=== PATIENT | male | born 1965 ===

== ENCOUNTER 2021-10-18 16:05 | Inpatient (IN) | payer MEDICAID ==
--- NOTE | 2021-10-19 14:01 | Consultation ---
Medications and Allergies Allergies Allergy/AdvReac Type Severity Reaction Status Date / Time ciprofloxacin [From Cipro] Allergy Rash Unverified 10/19/21 13:56 Home Medications Medication Instructions Recorded Confirmed Last Taken Type Albuterol Mdi (or & Nicu Only) 1 puff IH ONCE 10/18/21 10/18/21 Unknown History [ProAir HFA Inhaler] Gabapentin [Neurontin] 300 mg PO BID 10/18/21 10/18/21 Unknown History HYDROcodone/APAP 5-325 [[place] 1 each PO BID PRN 10/18/21 10/18/21 Unknown History 5/325] Omeprazole 40 mg PO QAM 10/18/21 10/18/21 Unknown History Quetiapine Fumarate [SEROquel] 400 mg PO BID 10/18/21 10/18/21 Unknown History amLODIPine [Norvasc] 5 mg PO DAILY 10/18/21 10/18/21 Unknown History buPROPion HCL [Bupropion Xl] 150 mg PO Q24HR 10/18/21 10/18/21 Unknown History busPIRone [Buspar] 10 mg PO TID 10/18/21 10/18/21 Unknown History lisinopriL [Lisinopril] 20 mg PO DAILY 10/18/21 10/18/21 Unknown History Active Meds: Active Medications Bupropion HCl (Bupropion Xl 150 Mg Tab) 150 mg PO Q24H [facility] Buspirone HCl (Buspirone 10 Mg Tab) 10 mg PO TID [facility] Gabapentin (Gabapentin 300 Mg Cap) 300 mg PO BID [facility] Quetiapine Fumarate (Quetiapine 200 Mg Tab) 400 mg PO BID [facility]
[2021-10-19] MEDS ORDERED: ALBUTEROL 2.5 MG/3 ML NEBU IH ONE (14:08)
[2021-10-19] MEDS ORDERED: ALBUTEROL 8.5 GM MDI INHALATION IH SCH (14:15)
--- NOTE | 2021-10-19 14:18 | History and Physical Report ---
GP History & Physical - History of Present Illness Date of admission: 10/19/21 Reason for Admission: Danger to self, Severe anxiety/depression Chief Complaint: SI History of Present Illness: Patient Name: Irais Kaye Date of : 1965 Attending Provider: YUNG KOHLI Date: 10/19/21 GP History & Physical - History of Present Illness Date of admission: 10/19/21 Date of Examination: 10/19/21 Reason for Admission: Danger to self, Severe anxiety/depression History of Present Illness: The patient was seen today. Patient states that "Girlfriend " and has been having difficulties. Patient states that he has been having SI thoughts for a couple of weeks now with a plan to cut his arms with a "knife" or hang himself with a "rope". Patient observed to be teary at this time. Patient admits to take illicit drug use. PAST PSYCHIATRIC HISTORY: Diagnoses:Schizophrenia Suicide attempts or Self-harm behavior: Denies Prior psychiatric hospitalizations: Yes Substance Abuse history:Yes Previous psychiatric medications tried: Abilify, Buspar,Seroquel, Gabapentin Outpatient treatment:Yes PAST MEDICAL HISTORY:HTN Family Psychiatric History: None reported or documented SOCIAL HISTORY Marital Status: Single Living Arrangements: Lives alone Employment Status: Retired Access to guns/weapons: Denies Education: History of Abuse:Denies Legal History: Denies REVIEW OF SYSTEMS Constitutional: Negative for weight loss ENT: Negative for stridor Respiratory: Negative for cough or hemoptysis All other systems reviewed and are negative MENTAL STATUS EXAMINATION General Appearance and Behavior: Age appropriate, wearing appropriate clothes, cooperative, polite with questioning, good eye contact Cooperation: cooperative Psychomotor Behavior: Psychomotor normal Mood: anxious,Teary Affect and affective range: congruent with stated affect Thought Process: Goal directed Thought Content: SI Speech: Normal volume, Regular rate and rhythm Suicidal Ideation: Yes. Homicidal Ideation: Denies Hallucination: Denies Delusions:None Impulse Control: Limited Insight and Judgment: Limited Memory: Intact Attention:attentive Orientation: Alert and oriented Diagnoses: Schizophrenia Treatment Plan Patient admitted for inpatient psychiatric evaluation, medication adjustment and close monitoring The patient's behavior, mood, sleep and appetite will be closely monitored. Patient enrolled in individual and group therapeutic sessions and encouraged to attend. Patient provided with a safe and structured environment. Patient's physical health needs will be addressed by the Hospitalist. Hospitalist Consulted Labs including CBC, CMP, Lipid profile and Hemoglobin A1C levels ordered for baseline reference Social Assessment will be completed and the Draw Operator will work with patient and family to ensure a suitable and safe disposition Medication adjustment will be made as clinically indicated Continue home meds Usual Wellness Anabaptism/Preservation: - Start Trazodone 50 mg po QHS & 50 mg po QHS PRN between 10 PM & 2 AM for insomnia - Start Melatonin 5 mg po QHS to promote circadian rhythm The patient agreed on the treatment plan, understood the risk, benefit, alternative treatment, potential consequence of no treatment, and gave informed consent. Estimated days: 7 Post hospital care: primary care provider, psychiatric provider Case staffed with Dr. Goldberg Legal Status: Voluntary Patient Problems: Legal Status: Voluntary Medications and Allergies Legal Status: Involuntary Reaction to Hospitalization: Accepting Medications and Allergies Allergies Allergy/AdvReac Type Severity Reaction Status Date / Time ciprofloxacin [From Cipro] Allergy Rash Verified 10/19/21 15:11 Home Medications Medication Instructions Recorded Confirmed Last Taken Type Albuterol Mdi (or & Nicu Only) 1 puff IH ONCE 10/18/21 10/18/21 Unknown History [ProAir HFA Inhaler] Gabapentin [Neurontin] 300 mg PO BID 10/18/21 10/18/21 Unknown History HYDROcodone/APAP 5-325 [[place] 1 each PO BID PRN 10/18/21 10/18/21 Unknown History 5/325] Omeprazole 40 mg PO QAM 10/18/21 10/18/21 Unknown History Quetiapine Fumarate [SEROquel] 400 mg PO BID 10/18/21 10/18/21 Unknown History amLODIPine [Norvasc] 5 mg PO DAILY 10/18/21 10/18/21 Unknown History buPROPion HCL [Bupropion Xl] 150 mg PO Q24HR 10/18/21 10/18/21 Unknown History busPIRone [Buspar] 10 mg PO TID 10/18/21 10/18/21 Unknown History lisinopriL [Lisinopril] 20 mg PO DAILY 10/18/21 10/18/21 Unknown History Active Meds: Active Medications Hydrocodone Bitart/Acetaminophen (Hydrocodone/Acetaminophen 5-325 Mg Tab) 1 each PO BID PRN PRN Reason: Pain , Severe (7-10) Amlodipine Besylate (Amlodipine 5 Mg Tab) 5 mg PO DAILY [facility] Bupropion HCl (Bupropion Xl 150 Mg Tab) 150 mg PO Q24H [facility] Buspirone HCl (Buspirone 10 Mg Tab) 10 mg PO TID [facility] Gabapentin (Gabapentin 300 Mg Cap) 300 mg PO BID [facility] Lisinopril (Lisinopril 20 Mg Tab) 20 mg PO DAILY [facility] Pantoprazole Sodium (Pantoprazole 40 Mg Tab) 40 mg PO DAILY [facility] Quetiapine Fumarate (Quetiapine 200 Mg Tab) 400 mg PO BID [facility] Physician Certification - Certification Statement Physician Certification Statement: This is an acknowledgement statement that MARIE ZHENG is a 56 year old M who requires inpatient psychiatric admission for treatment which could reasonably be expected to improve the patient's condition for Estimated period of time patient will need to remain in the hospital: [ ] Plan for post-hospital care: [ ]
[2021-10-19] MEDS: QUEtiapine 200 MG TAB PO SCH ×2 (15:12→21:08)
[2021-10-19] MEDS: busPIRone 10 MG TAB PO SCH ×2 (15:12→20:15)
[2021-10-19] MEDS: GABAPENTIN 300 MG CAP PO SCH ×2 (15:12→21:08)
[2021-10-19] MEDS: PANTOPRAZOLE 40 MG TAB PO SCH (15:12)
[2021-10-19] MEDS: buPROPion XL 150 MG TAB PO SCH (15:13)
[2021-10-19] MEDS: amLODIPine 5 MG TAB PO SCH (15:13)
[2021-10-19] MEDS: HYDROcodone/ACETAMINOPHEN 5-325 MG TAB PO PRN (15:14)
[2021-10-19] MEDS: LISINOPRIL 20 MG TAB PO SCH (15:18)
[2021-10-19 18:07] LABS: Basophils # (Auto) 0.1 K/mm3 (0.0-0.1); Basophils % (Auto) 1.1 % (0.0-1.8); Eosinophils # (Auto) 0.3 K/mm3 (0.0-0.4); Eosinophils % (Auto) 4.5 % (0.0-4.3); Hematocrit 34.9 % (35.5-45.6); Hemoglobin 11.4 gm/dl (11.8-15.2); Mean Corpuscular HGB Conc 33 % (32-34); Mean Corpuscular Volume 89 fl (84-94); Monocytes # (Auto) 0.5 K/mm3 (0.0-0.8); Monocytes % (Auto) 8.9 % (0.0-7.3); Platelet Count 279 K/mm3 (140-440); Red Blood Count 3.92 M/mm3 (3.65-5.03); Red Cell Distribution Width 16.3 % (13.2-15.2)
[2021-10-19 18:25] LABS: Alanine Aminotransferase 19 units/L (7-56); Albumin 3.6 g/dL (3.9-5); BUN/Creatinine Ratio 17; Blood Urea Nitrogen 12 mg/dL (9-20); Calcium 8.9 mg/dL (8.4-10.2); Hemolysis Index 8
[2021-10-19] MEDS ORDERED: GABAPENTIN 300 MG CAP PO SCH (22:00)
[2021-10-20] MEDS: HYDROcodone/ACETAMINOPHEN 5-325 MG TAB PO PRN ×2 (02:59→12:50)
[2021-10-20] MEDS: busPIRone 10 MG TAB PO SCH ×3 (08:58→20:45)
[2021-10-20] MEDS: PANTOPRAZOLE 40 MG TAB PO SCH (09:00)
[2021-10-20] MEDS: amLODIPine 5 MG TAB PO SCH (09:00)
[2021-10-20] MEDS: GABAPENTIN 300 MG CAP PO SCH ×2 (09:01→21:40)
[2021-10-20] MEDS: QUEtiapine 200 MG TAB PO SCH ×2 (09:01→21:40)
[2021-10-20] MEDS: LISINOPRIL 20 MG TAB PO SCH (09:01)
[2021-10-20] MEDS ORDERED: NON-FORMULARY EACH (Omeprazole [Omeprazole] 40 MG Capsule.Dr) PO SCH (10:00)
--- NOTE | 2021-10-20 12:09 | Progress Note ---
Subjective Date of service: 10/20/21 Subjective Comment: Patient seen today in the day room having breakfast. Patient states that he is feeling much better today. Patient states that "sometimes hurting myself still comes to mind". Patient denies any homicidal thoughts, visual or auditory hallucination at this time. PAST PSYCHIATRIC HISTORY: Diagnoses:Schizophrenia Suicide attempts or Self-harm behavior: Denies Prior psychiatric hospitalizations: Yes Substance Abuse history:Yes Previous psychiatric medications tried: Abilify, Buspar,Seroquel, Gabapentin Outpatient treatment:Yes PAST MEDICAL HISTORY:HTN Family Psychiatric History: None reported or documented SOCIAL HISTORY Marital Status: Single Living Arrangements: Lives alone Employment Status: Retired Access to guns/weapons: Denies Education: History of Abuse:Denies Legal History: Denies REVIEW OF SYSTEMS Constitutional: Negative for weight loss ENT: Negative for stridor Respiratory: Negative for cough or hemoptysis All other systems reviewed and are negative MENTAL STATUS EXAMINATION General Appearance and Behavior: Age appropriate, wearing appropriate clothes, cooperative, polite with questioning, good eye contact Cooperation: cooperative Psychomotor Behavior: Psychomotor normal Mood: anxious,Teary Affect and affective range: congruent with stated affect Thought Process: Goal directed Thought Content: SI Speech: Normal volume, Regular rate and rhythm Suicidal Ideation: Yes. Homicidal Ideation: Denies Hallucination: Denies Delusions:None Impulse Control: Limited Insight and Judgment: Limited Memory: Intact Attention:attentive Orientation: Alert and oriented Diagnoses: Schizophrenia Treatment Plan Patient admitted for inpatient psychiatric evaluation, medication adjustment and close monitoring The patient's behavior, mood, sleep and appetite will be closely monitored. Patient enrolled in individual and group therapeutic sessions and encouraged to attend. Patient provided with a safe and structured environment. Patient's physical health needs will be addressed by the Hospitalist. Hospitalist Consulted Labs including CBC, CMP, Lipid profile and Hemoglobin A1C levels ordered for baseline reference Social Assessment will be completed and the Reversal Print Inspector will work with patient and family to ensure a suitable and safe disposition Medication adjustment will be made as clinically indicated Continue home meds Usual Wellness Hindu/Preservation: - Start Trazodone 50 mg po QHS & 50 mg po QHS PRN between 10 PM & 2 AM for insomnia - Start Melatonin 5 mg po QHS to promote circadian rhythm The patient agreed on the treatment plan, understood the risk, benefit, alternative treatment, potential consequence of no treatment, and gave informed consent. Estimated days: 7 Post hospital care: primary care provider, psychiatric provider Case staffed with Dr. Goldberg Legal Status: Voluntary Patient Problems: Legal Status: Voluntary Medications and Allergies Legal Status: Involuntary Reaction to Hospitalization: Accepting Medications and Allergies Allergies Allergy/AdvReac Type Severity Reaction Status Date / Time ciprofloxacin [From Cipro] Allergy Rash Verified 10/19/21 15:11 Home Medications Medication Instructions Recorded Confirmed Last Taken Type Albuterol Mdi (or & Nicu Only) 1 puff IH ONCE 10/18/21 10/18/21 Unknown History [ProAir HFA Inhaler] Gabapentin [Neurontin] 300 mg PO BID 10/18/21 10/18/21 Unknown History HYDROcodone/APAP 5-325 [[place] 1 each PO BID PRN 10/18/21 10/18/21 Unknown History 5/325] Omeprazole 40 mg PO QAM 10/18/21 10/18/21 Unknown History Quetiapine Fumarate [SEROquel] 400 mg PO BID 10/18/21 10/18/21 Unknown History amLODIPine [Norvasc] 5 mg PO DAILY 10/18/21 10/18/21 Unknown History buPROPion HCL [Bupropion Xl] 150 mg PO Q24HR 10/18/21 10/18/21 Unknown History busPIRone [Buspar] 10 mg PO TID 10/18/21 10/18/21 Unknown History lisinopriL [Lisinopril] 20 mg PO DAILY 10/18/21 10/18/21 Unknown History Active Meds: Active Medications Hydrocodone Bitart/Acetaminophen (Hydrocodone/Acetaminophen 5-325 Mg Tab) 1 each PO BID PRN PRN Reason: Pain , Severe (7-10) Last Admin: 10/20/21 02:59 Dose: 1 each Amlodipine Besylate (Amlodipine 5 Mg Tab) 5 mg PO DAILY [facility] Last Admin: 10/20/21 09:00 Dose: 5 mg Bupropion HCl (Bupropion Xl 150 Mg Tab) 150 mg PO Q24H [facility] Last Admin: 10/19/21 15:13 Dose: 150 mg Buspirone HCl (Buspirone 10 Mg Tab) 10 mg PO TID [facility] Last Admin: 10/20/21 08:58 Dose: 10 mg Gabapentin (Gabapentin 300 Mg Cap) 300 mg PO BID [facility] Last Admin: 10/20/21 09:01 Dose: 300 mg Lisinopril (Lisinopril 20 Mg Tab) 20 mg PO DAILY [facility] Last Admin: 10/20/21 09:01 Dose: 20 mg Pantoprazole Sodium (Pantoprazole 40 Mg Tab) 40 mg PO DAILY [facility] Last Admin: 10/20/21 09:00 Dose: 40 mg Quetiapine Fumarate (Quetiapine 200 Mg Tab) 400 mg PO BID [facility] Last Admin: 10/20/21 09:01 Dose: 400 mg Results - Results Labs/Vitals: Laboratory Last Values WBC 6.0 K/mm3 (4.5-11.0) 10/19/21 17:51 RBC 3.92 M/mm3 (3.65-5.03) 10/19/21 17:51 Hgb 11.4 gm/dl (11.8-15.2) L 10/19/21 17:51 Hct 34.9 % (35.5-45.6) L 10/19/21 17:51 MCV 89 fl (84-94) 10/19/21 17:51 MCH 29 pg (28-32) 10/19/21 17:51 MCHC 33 % (32-34) 10/19/21 17:51 RDW 16.3 % (13.2-15.2) H 10/19/21 17:51 Plt Count 279 K/mm3 (140-440) 10/19/21 17:51 Lymph % (Auto) 17.0 % (13.4-35.0) 10/19/21 17:51 [place] % (Auto) 8.9 % (0.0-7.3) H 10/19/21 17:51 Eos % (Auto) 4.5 % (0.0-4.3) H 10/19/21 17:51 Baso % (Auto) 1.1 % (0.0-1.8) 10/19/21 17:51 Lymph # (Auto) 1.0 K/mm3 (1.2-5.4) L 10/19/21 17:51 [place] # (Auto) 0.5 K/mm3 (0.0-0.8) 10/19/21 17:51 Eos # (Auto) 0.3 K/mm3 (0.0-0.4) 10/19/21 17:51 Baso # (Auto) 0.1 K/mm3 (0.0-0.1) 10/19/21 17:51 Seg Neutrophils % 68.5 % (40.0-70.0) 10/19/21 17:51 Seg Neutrophils # 4.1 K/mm3 (1.8-7.7) 10/19/21 17:51 Sodium 140 mmol/L (137-145) 10/19/21 17:51 Potassium 4.1 mmol/L (3.6-5.0) 10/19/21 17:51 Chloride 106.1 mmol/L (98-107) 10/19/21 17:51 Carbon Dioxide 23 mmol/L (22-30) 10/19/21 17:51 Anion Gap 15 mmol/L 10/19/21 17:51 BUN 12 mg/dL (9-20) 10/19/21 17:51 Creatinine 0.7 mg/dL (0.8-1.3) L 10/19/21 17:51 Estimated GFR > 60 ml/min 10/19/21 17:51 BUN/Creatinine Ratio 17 % 10/19/21 17:51 Glucose 137 mg/dL (75-100) H 10/19/21 17:51 POC Glucose 131 mg/dL (70-105) H 10/19/21 19:56 Calcium 8.9 mg/dL (8.4-10.2) 10/19/21 17:51 Total Bilirubin < 0.20 mg/dL (0.1-1.2) 10/19/21 17:51 AST 27 units/L (5-40) 10/19/21 17:51 ALT 19 units/L (7-56) 10/19/21 17:51 Alkaline Phosphatase 83 units/L (35-129) 10/19/21 17:51 Total Protein 6.4 g/dL (6.3-8.2) 10/19/21 17:51 Albumin 3.6 g/dL (3.9-5) L 10/19/21 17:51 Albumin/Globulin Ratio 1.3 % 10/19/21 17:51 TSH 1.210 mlU/mL (0.270-4.200) 10/19/21 17:51 Last Vital Signs Temp 97.9 F 10/20/21 08:12 Pulse 82 10/20/21 09:00 Resp 20 07/23/22 08:12 BP 131/74 10/20/21 09:00 Pulse Ox 97 10/20/21 08:12
[2021-10-20] MEDS: buPROPion XL 150 MG TAB PO SCH (14:46)
[2021-10-20] MEDS: ACETAMINOPHEN 325 MG TAB PO PRN (18:15)
[2021-10-21] MEDS: ACETAMINOPHEN 325 MG TAB PO PRN ×2 (04:35→17:20)
[2021-10-21] MEDS: busPIRone 10 MG TAB PO SCH ×3 (08:17→21:25)
[2021-10-21] MEDS: HYDROcodone/ACETAMINOPHEN 5-325 MG TAB PO PRN ×2 (08:17→21:24)
[2021-10-21] MEDS: amLODIPine 5 MG TAB PO SCH (09:47)
[2021-10-21] MEDS: PANTOPRAZOLE 40 MG TAB PO SCH (09:47)
[2021-10-21] MEDS: GABAPENTIN 300 MG CAP PO SCH ×2 (09:47→21:26)
[2021-10-21] MEDS: QUEtiapine 200 MG TAB PO SCH ×2 (09:48→21:25)
[2021-10-21] MEDS: LISINOPRIL 20 MG TAB PO SCH (09:48)
--- NOTE | 2021-10-21 12:13 | Progress Note ---
Subjective Date of service: 10/21/21 Subjective Comment: Date of service: 10/21/21 Principal diagnosis: Schizophrenia Patient seen today in the day room. Patient states that he is doing well. Per nursing staff patient complained of pain. Patient states that he has hemo rrhoids. Patient eating and eating well, and denies any SI/HI/AVH at this time. Patient seen today in the day room having breakfast. Patient states that he is feeling much better today. Patient states that "sometimes hurting myself still comes to mind". Patient denies any homicidal thoughts, visual or auditory hallucination at this time. PAST PSYCHIATRIC HISTORY: Diagnoses:Schizophrenia Suicide attempts or Self-harm behavior: Denies Prior psychiatric hospitalizations: Yes Substance Abuse history:Yes Previous psychiatric medications tried: Abilify, Buspar,Seroquel, Gabapentin Outpatient treatment:Yes PAST MEDICAL HISTORY:HTN Family Psychiatric History: None reported or documented SOCIAL HISTORY Marital Status: Single Living Arrangements: Lives alone Employment Status: Retired Access to guns/weapons: Denies Education: History of Abuse:Denies Legal History: Denies REVIEW OF SYSTEMS Constitutional: Negative for weight loss ENT: Negative for stridor Respiratory: Negative for cough or hemoptysis All other systems reviewed and are negative MENTAL STATUS EXAMINATION General Appearance and Behavior: Age appropriate, wearing appropriate clothes, cooperative, polite with questioning, good eye contact Cooperation: cooperative Psychomotor Behavior: Psychomotor normal Mood: anxious,Teary Affect and affective range: congruent with stated affect Thought Process: Goal directed Thought Content: SI Speech: Normal volume, Regular rate and rhythm Suicidal Ideation: Yes. Homicidal Ideation: Denies Hallucination: Denies Delusions:None Impulse Control: Limited Insight and Judgment: Limited Memory: Intact Attention:attentive Orientation: Alert and oriented Diagnoses: Schizophrenia Treatment Plan Patient admitted for inpatient psychiatric evaluation, medication adjustment and close monitoring The patient's behavior, mood, sleep and appetite will be closely monitored. Patient enrolled in individual and group therapeutic sessions and encouraged to attend. Patient provided with a safe and structured environment. Patient's physical health needs will be addressed by the Hospitalist. Hospitalist Consulted Labs including CBC, CMP, Lipid profile and Hemoglobin A1C levels ordered for baseline reference Social Assessment will be completed and the Meter Inspector will work with patient and family to ensure a suitable and safe disposition Medication adjustment will be made as clinically indicated Continue home meds Usual Wellness Temple/Preservation: - Start Trazodone 50 mg po QHS & 50 mg po QHS PRN between 10 PM & 2 AM for ins omnia - Start Melatonin 5 mg po QHS to promote circadian rhythm The patient agreed on the treatment plan, understood the risk, benefit, alternative treatment, potential consequence of no treatment, and gave informed consent. Estimated days: 7 Post hospital care: primary care provider, psychiatric provider Case staffed with Dr. Goldberg Legal Status: Voluntary Patient Problems: Legal Status: Voluntary Medications and Allergies Legal Status: Involuntary Reaction to Hospitalization: Accepting Medications and Allergies Allergies Allergy/AdvReac Type Severity Reaction Status Date / Time ciprofloxacin [From Cipro] Allergy Rash Verified 10/19/21 15:11 Home Medications Medication Instructions Recorded Confirmed Last Taken Type Albuterol Mdi (or & Nicu Only) 1 puff IH ONCE 10/18/21 10/18/21 Unknown History [ProAir HFA Inhaler] Gabapentin [Neurontin] 300 mg PO BID 10/18/21 10/18/21 Unknown History HYDROcodone/APAP 5-325 [[place] 1 each PO BID PRN 10/18/21 10/18/21 Unknown History 5/325] Omeprazole 40 mg PO QAM 10/18/21 10/18/21 Unknown History Quetiapine Fumarate [SEROquel] 400 mg PO BID 10/18/21 10/18/21 Unknown History amLODIPine [Norvasc] 5 mg PO DAILY 10/18/21 10/18/21 Unknown History buPROPion HCL [Bupropion Xl] 150 mg PO Q24HR 10/18/21 10/18/21 Unknown History busPIRone [Buspar] 10 mg PO TID 10/18/21 10/18/21 Unknown History lisinopriL [Lisinopril] 20 mg PO DAILY 10/18/21 10/18/21 Unknown History Active Meds: Active Medications Acetaminophen (Acetaminophen 325 Mg Tab) 650 mg PO Q6H PRN PRN Reason: Pain, Mild (1-3) Last Admin: 10/21/21 04:35 Dose: 650 mg Hydrocodone Bitart/Acetaminophen (Hydrocodone/Acetaminophen 5-325 Mg Tab) 1 each PO BID PRN PRN Reason: Pain , Severe (7-10) Last Admin: 10/21/21 08:17 Dose: 1 each Amlodipine Besylate (Amlodipine 5 Mg Tab) 5 mg PO DAILY [facility] Last Admin: 10/21/21 09:47 Dose: 5 mg Bupropion HCl (Bupropion Xl 150 Mg Tab) 150 mg PO Q24H [facility] Last Admin: 10/20/21 14:46 Dose: 150 mg Buspirone HCl (Buspirone 10 Mg Tab) 10 mg PO TID [facility] Last Admin: 10/21/21 08:17 Dose: 10 mg Gabapentin (Gabapentin 300 Mg Cap) 300 mg PO BID [facility] Last Admin: 10/21/21 09:47 Dose: 300 mg Lisinopril (Lisinopril 20 Mg Tab) 20 mg PO DAILY [facility] Last Admin: 10/21/21 09:48 Dose: 20 mg Pantoprazole Sodium (Pantoprazole 40 Mg Tab) 40 mg PO DAILY [facility] Last Admin: 10/21/21 09:47 Dose: 40 mg Quetiapine Fumarate (Quetiapine 200 Mg Tab) 400 mg PO BID [facility] Last Admin: 10/21/21 09:48 Dose: 400 mg Results - Results Labs/Vitals: Laboratory Last Values WBC 6.0 K/mm3 (4.5-11.0) 10/19/21 17:51 RBC 3.92 M/mm3 (3.65-5.03) 10/19/21 17:51 Hgb 11.4 gm/dl (11.8-15.2) L 10/19/21 17:51 Hct 34.9 % (35.5-45.6) L 10/19/21 17:51 MCV 89 fl (84-94) 10/19/21 17:51 MCH 29 pg (28-32) 10/19/21 17:51 MCHC 33 % (32-34) 10/19/21 17:51 RDW 16.3 % (13.2-15.2) H 10/19/21 17:51 Plt Count 279 K/mm3 (140-440) 10/19/21 17:51 Lymph % (Auto) 17.0 % (13.4-35.0) 10/19/21 17:51 [place] % (Auto) 8.9 % (0.0-7.3) H 10/19/21 17:51 Eos % (Auto) 4.5 % (0.0-4.3) H 10/19/21 17:51 Baso % (Auto) 1.1 % (0.0-1.8) 10/19/21 17:51 Lymph # (Auto) 1.0 K/mm3 (1.2-5.4) L 10/19/21 17:51 [place] # (Auto) 0.5 K/mm3 (0.0-0.8) 10/19/21 17:51 Eos # (Auto) 0.3 K/mm3 (0.0-0.4) 10/19/21 17:51 Baso # (Auto) 0.1 K/mm3 (0.0-0.1) 10/19/21 17:51 Seg Neutrophils % 68.5 % (40.0-70.0) 10/19/21 17:51 Seg Neutrophils # 4.1 K/mm3 (1.8-7.7) 10/19/21 17:51 Sodium 140 mmol/L (137-145) 10/19/21 17:51 Potassium 4.1 mmol/L (3.6-5.0) 10/19/21 17:51 Chloride 106.1 mmol/L (98-107) 10/19/21 17:51 Carbon Dioxide 23 mmol/L (22-30) 10/19/21 17:51 Anion Gap 15 mmol/L 10/19/21 17:51 BUN 12 mg/dL (9-20) 10/19/21 17:51 Creatinine 0.7 mg/dL (0.8-1.3) L 10/19/21 17:51 Estimated GFR > 60 ml/min 10/19/21 17:51 BUN/Creatinine Ratio 17 % 10/19/21 17:51 Glucose 137 mg/dL (75-100) H 10/19/21 17:51 POC Glucose 131 mg/dL (70-105) H 10/19/21 19:56 Calcium 8.9 mg/dL (8.4-10.2) 10/19/21 17:51 Total Bilirubin < 0.20 mg/dL (0.1-1.2) 10/19/21 17:51 AST 27 units/L (5-40) 10/19/21 17:51 ALT 19 units/L (7-56) 10/19/21 17:51 Alkaline Phosphatase 83 units/L (35-129) 10/19/21 17:51 Total Protein 6.4 g/dL (6.3-8.2) 10/19/21 17:51 Albumin 3.6 g/dL (3.9-5) L 10/19/21 17:51 Albumin/Globulin Ratio 1.3 % 10/19/21 17:51 TSH 1.210 mlU/mL (0.270-4.200) 10/19/21 17:51 Last Vital Signs Temp 97.9 F 10/20/21 08:12 Pulse 80 10/21/21 09:48 Resp 18 10/21/21 10:16 BP 109/81 10/21/21 09:48 Pulse Ox 98 10/21/21 10:16
[2021-10-21] MEDS: buPROPion XL 150 MG TAB PO SCH (13:03)
[2021-10-22] MEDS: ACETAMINOPHEN 325 MG TAB PO PRN ×2 (02:20→13:44)
[2021-10-22] MEDS: GABAPENTIN 300 MG CAP PO SCH ×2 (09:32→21:02)
[2021-10-22] MEDS: HYDROcodone/ACETAMINOPHEN 5-325 MG TAB PO PRN ×2 (09:32→21:03)
[2021-10-22] MEDS: busPIRone 10 MG TAB PO SCH ×3 (09:32→21:02)
[2021-10-22] MEDS: PANTOPRAZOLE 40 MG TAB PO SCH (09:32)
[2021-10-22] MEDS: QUEtiapine 200 MG TAB PO SCH ×2 (09:32→21:02)
[2021-10-22] MEDS: LISINOPRIL 20 MG TAB PO SCH (09:59)
[2021-10-22] MEDS: amLODIPine 5 MG TAB PO SCH (10:00)
--- NOTE | 2021-10-22 13:46 | Progress Note ---
Subjective Date of service: 10/22/21 Subjective Comment: Date of service: 10/22/21: Patient seen today in his room. Patient states that he is doing good. States that though he hears voices at times he is currently not hearing them. Per nursing staff patient was verbally aggressive yesterday to the extent that he was having difficulty breathing properly and kept pacing. Patient denies any SI/HI/AVH at this time. Date of service: 10/21/21 Principal diagnosis: Schizophrenia Patient seen today in the day room. Patient states that he is doing well. Per nursing staff patient complained of pain. Patient states that he has hemorrhoids. Patient eating and eating well, and denies any SI/HI/AVH at this time. Date of service: 10/20/21: Patient seen today in the day room having breakfast. Patient states that he is feeling much better today. Patient states that "sometimes hurting myself still comes to mind". Patient denies any homicidal thoughts, visual or auditory hallucination at this time. PAST PSYCHIATRIC HISTORY: Diagnoses:Schizophrenia Suicide attempts or Self-harm behavior: Denies Prior psychiatric hospitalizations: Yes Substance Abuse history:Yes Previous psychiatric medications tried: Abilify, Buspar,Seroquel, Gabapentin Outpatient treatment:Yes PAST MEDICAL HISTORY:HTN Family Psychiatric History: None reported or documented SOCIAL HISTORY Marital Status: Single Living Arrangements: Lives alone Employment Status: Retired Access to guns/weapons: Denies Education: History of Abuse:Denies Legal History: Denies REVIEW OF SYSTEMS Constitutional: Negative for weight loss ENT: Negative for stridor Respiratory: Negative for cough or hemoptysis All other systems reviewed and are negative MENTAL STATUS EXAMINATION General Appearance and Behavior: Age appropriate, wearing appropriate clothes, cooperative, polite with questioning, good eye contact Cooperation: cooperative Psychomotor Behavior: Psychomotor normal Mood: anxious,Teary Affect and affective range: congruent with stated affect Thought Process: Goal directed Thought Content: SI Speech: Normal volume, Regular rate and rhythm Suicidal Ideation: Yes. Homicidal Ideation: Denies Hallucination: Denies Delusions:None Impulse Control: Limited Insight and Judgment: Limited Memory: Intact Attention:attentive Orientation: Alert and oriented Diagnoses: Schizophrenia Treatment Plan Patient admitted for inpatient psychiatric evaluation, medication adjustment and close monitoring The patient's behavior, mood, sleep and appetite will be closely monitored. Patient enrolled in individual and group therapeutic sessions and encouraged to attend. Patient provided with a safe and structured environment. Patient's physical health needs will be addressed by the Hospitalist. Hospitalist Consulted Labs including CBC, CMP, Lipid profile and Hemoglobin A1C levels ordered for baseline reference Social Assessment will be completed and the Election Judge will work with patient and family to ensure a suitable and safe disposition Medication adjustment will be made as clinically indicated Continue home meds Usual Wellness Scientologist/Preservation: - Start Trazodone 50 mg po QHS & 50 mg po QHS PRN between 10 PM & 2 AM for insomnia - Start Melatonin 5 mg po QHS to promote circadian rhythm The patient agreed on the treatment plan, understood the risk, benefit, alternative treatment, potential consequence of no treatment, and gave informed consent. Estimated days: 7 Post hospital care: primary care provider, psychiatric provider Case staffed with Dr. Goldberg Legal Status: Voluntary Patient Problems: Legal Status: Voluntary Medications and Allergies Legal Status: Involuntary Reaction to Hospitalization: Accepting Medications and Allergies Allergies Allergy/AdvReac Type Severity Reaction Status Date / Time ciprofloxacin [From Cipro] Allergy Rash Verified 10/19/21 15:11 Home Medications Medication Instructions Recorded Confirmed Last Taken Type Albuterol Mdi (or & Nicu Only) 1 puff IH ONCE 10/18/21 10/18/21 Unknown History [ProAir HFA Inhaler] Gabapentin [Neurontin] 300 mg PO BID 10/18/21 10/18/21 Unknown History HYDROcodone/APAP 5-325 [[place] 1 each PO BID PRN 10/18/21 10/18/21 Unknown History 5/325] Omeprazole 40 mg PO QAM 10/18/21 10/18/21 Unknown History Quetiapine Fumarate [SEROquel] 400 mg PO BID 10/18/21 10/18/21 Unknown History amLODIPine [Norvasc] 5 mg PO DAILY 10/18/21 10/18/21 Unknown History buPROPion HCL [Bupropion Xl] 150 mg PO Q24HR 10/18/21 10/18/21 Unknown History busPIRone [Buspar] 10 mg PO TID 10/18/21 10/18/21 Unknown History lisinopriL [Lisinopril] 20 mg PO DAILY 10/18/21 10/18/21 Unknown History Active Meds: Active Medications Acetaminophen (Acetaminophen 325 Mg Tab) 650 mg PO Q6H PRN PRN Reason: Pain, Mild (1-3) Last Admin: 10/22/21 02:20 Dose: 650 mg Hydrocodone Bitart/Acetaminophen (Hydrocodone/Acetaminophen 5-325 Mg Tab) 1 each PO BID PRN PRN Reason: Pain , Severe (7-10) Last Admin: 10/22/21 09:32 Dose: 1 each Amlodipine Besylate (Amlodipine 5 Mg Tab) 5 mg PO DAILY [facility] Last Admin: 10/22/21 10:00 Dose: Not Given Bupropion HCl (Bupropion Xl 150 Mg Tab) 150 mg PO Q24H [facility] Last Admin: 10/21/21 13:03 Dose: 150 mg Buspirone HCl (Buspirone 10 Mg Tab) 10 mg PO TID [facility] Last Admin: 10/22/21 09:32 Dose: 10 mg Gabapentin (Gabapentin 300 Mg Cap) 300 mg PO BID [facility] Last Admin: 10/22/21 09:32 Dose: 300 mg Lisinopril (Lisinopril 20 Mg Tab) 20 mg PO DAILY [facility] Last Admin: 10/22/21 09:59 Dose: Not Given Pantoprazole Sodium (Pantoprazole 40 Mg Tab) 40 mg PO DAILY [facility] Last Admin: 10/22/21 09:32 Dose: 40 mg Quetiapine Fumarate (Quetiapine 200 Mg Tab) 400 mg PO BID [facility] Last Admin: 10/22/21 09:32 Dose: 400 mg Results - Results Labs/Vitals: Laboratory Last Values WBC 6.0 K/mm3 (4.5-11.0) 10/19/21 17:51 RBC 3.92 M/mm3 (3.65-5.03) 10/19/21 17:51 Hgb 11.4 gm/dl (11.8-15.2) L 10/19/21 17:51 Hct 34.9 % (35.5-45.6) L 10/19/21 17:51 MCV 89 fl (84-94) 10/19/21 17:51 MCH 29 pg (28-32) 10/19/21 17:51 MCHC 33 % (32-34) 10/19/21 17:51 RDW 16.3 % (13.2-15.2) H 10/19/21 17:51 Plt Count 279 K/mm3 (140-440) 10/19/21 17:51 Lymph % (Auto) 17.0 % (13.4-35.0) 10/19/21 17:51 [place] % (Auto) 8.9 % (0.0-7.3) H 10/19/21 17:51 Eos % (Auto) 4.5 % (0.0-4.3) H 10/19/21 17:51 Baso % (Auto) 1.1 % (0.0-1.8) 10/19/21 17:51 Lymph # (Auto) 1.0 K/mm3 (1.2-5.4) L 10/19/21 17:51 [place] # (Auto) 0.5 K/mm3 (0.0-0.8) 10/19/21 17:51 Eos # (Auto) 0.3 K/mm3 (0.0-0.4) 10/19/21 17:51 Baso # (Auto) 0.1 K/mm3 (0.0-0.1) 10/19/21 17:51 Seg Neutrophils % 68.5 % (40.0-70.0) 10/19/21 17:51 Seg Neutrophils # 4.1 K/mm3 (1.8-7.7) 10/19/21 17:51 Sodium 140 mmol/L (137-145) 10/19/21 17:51 Potassium 4.1 mmol/L (3.6-5.0) 10/19/21 17:51 Chloride 106.1 mmol/L (98-107) 10/19/21 17:51 Carbon Dioxide 23 mmol/L (22-30) 10/19/21 17:51 Anion Gap 15 mmol/L 10/19/21 17:51 BUN 12 mg/dL (9-20) 10/19/21 17:51 Creatinine 0.7 mg/dL (0.8-1.3) L 10/19/21 17:51 Estimated GFR > 60 ml/min 10/19/21 17:51 BUN/Creatinine Ratio 17 % 10/19/21 17:51 Glucose 137 mg/dL (75-100) H 10/19/21 17:51 POC Glucose 131 mg/dL (70-105) H 10/19/21 19:56 Calcium 8.9 mg/dL (8.4-10.2) 10/19/21 17:51 Total Bilirubin < 0.20 mg/dL (0.1-1.2) 10/19/21 17:51 AST 27 units/L (5-40) 10/19/21 17:51 ALT 19 units/L (7-56) 10/19/21 17:51 Alkaline Phosphatase 83 units/L (35-129) 10/19/21 17:51 Total Protein 6.4 g/dL (6.3-8.2) 10/19/21 17:51 Albumin 3.6 g/dL (3.9-5) L 10/19/21 17:51 Albumin/Globulin Ratio 1.3 % 10/19/21 17:51 TSH 1.210 mlU/mL (0.270-4.200) 10/19/21 17:51 Last Vital Signs Temp 98.3 F 10/22/21 08:36 Pulse 76 10/22/21 10:00 Resp 20 10/22/21 08:36 BP 98/58 10/22/21 10:00 Pulse Ox 98 10/22/21 08:36
[2021-10-22] MEDS: buPROPion XL 150 MG TAB PO SCH (14:00)
[2021-10-23] MEDS: QUEtiapine 200 MG TAB PO SCH ×2 (09:07→21:28)
[2021-10-23] MEDS: GABAPENTIN 300 MG CAP PO SCH ×2 (09:07→21:28)
[2021-10-23] MEDS: PANTOPRAZOLE 40 MG TAB PO SCH (09:07)
[2021-10-23] MEDS: busPIRone 10 MG TAB PO SCH ×3 (09:07→21:28)
[2021-10-23] MEDS: amLODIPine 5 MG TAB PO SCH (09:14)
[2021-10-23] MEDS: LISINOPRIL 20 MG TAB PO SCH (09:14)
[2021-10-23] MEDS: HYDROcodone/ACETAMINOPHEN 5-325 MG TAB PO PRN (09:15)
[2021-10-23] MEDS: buPROPion XL 150 MG TAB PO SCH (13:56)
[2021-10-23] MEDS: ACETAMINOPHEN 325 MG TAB PO PRN ×2 (13:57→21:28)
--- NOTE | 2021-10-23 14:45 | Progress Note ---
Subjective Date of service: 10/23/21 Subjective Comment: Date of service: 10/23/21: Patient seen today. Observed patient had some tremors, when asked patient states "I am in pain". Patient did confirm that he was just given pain medication. Patient denies any SI/HI/AVH at this time and states he is anxious to go back home. Will continue to monitor. Date of service: 10/22/21: Patient seen today in his room. Patient states that he is doing good. States that though he hears voices at times he is currently not hearing them. Per nursing staff patient was verbally aggressive yesterday to the extent that he was having difficulty breathing properly and kept pacing. Chilo coles denies any SI/HI/AVH at this time. Date of service: 10/21/21 Principal diagnosis: Schizophrenia Patient seen today in the day room. Patient states that he is doing well. Per nursing staff patient complained of pain. Patient states that he has hemorrhoids. Patient eating and eating well, and denies any SI/HI/AVH at this time. Date of service: 10/20/21: Patient seen today in the day room having breakfast. Patient states that he is feeling much better today. Patient states that "sometimes hurting myself still comes to mind". Patient denies any homicidal thoughts, visual or auditory hallucination at this time. PAST PSYCHIATRIC HISTORY: Diagnoses:Schizophrenia Suicide attempts or Self-harm behavior: Denies Prior psychiatric hospitalizations: Yes Substance Abuse history:Yes Previous psychiatric medications tried: Abilify, Buspar,Seroquel, Gabapentin Outpatient treatment:Yes PAST MEDICAL HISTORY:HTN Family Psychiatric History: None reported or documented SOCIAL HISTORY Marital Status: Single Living Arrangements: Lives alone Employment Status: Retired Access to guns/weapons: Denies Education: History of Abuse:Denies Legal History: Denies REVIEW OF SYSTEMS Constitutional: Negative for weight loss ENT: Negative for stridor Respiratory: Negative for cough or hemoptysis All other systems reviewed and are negative MENTAL STATUS EXAMINATION General Appearance and Behavior: Age appropriate, wearing appropriate clothes, cooperative, polite with questioning, good eye contact Cooperation: cooperative Psychomotor Behavior: Psychomotor normal Mood: anxious,Teary Affect and affective range: congruent with stated affect Thought Process: Goal directed Thought Content: SI Speech: Normal volume, Regular rate and rhythm Suicidal Ideation: Yes. Homicidal Ideation: Denies Hallucination: Denies Delusions:None Impulse Control: Limited Insight and Judgment: Limited Memory: Intact Attention:attentive Orientation: Alert and oriented Diagnoses: Schizophrenia Treatment Plan Patient admitted for inpatient psychiatric evaluation, medication adjustment and close monitoring The patient's behavior, mood, sleep and appetite will be closely monitored. Patient enrolled in individual and group therapeutic sessions and encouraged to attend. Patient provided with a safe and structured environment. Patient's physical health needs will be addressed by the Hospitalist. Hospitalist Consulted Labs including CBC, CMP, Lipid profile and Hemoglobin A1C levels ordered for baseline reference Social Assessment will be completed and the Field Service Consultant will work with patient and family to ensure a suitable and safe disposition Medication adjustment will be made as clinically indicated Continue home meds Usual Wellness Moravian/Preservation: - Start Trazodone 50 mg po QHS & 50 mg po QHS PRN between 10 PM & 2 AM for insomnia - Start Melatonin 5 mg po QHS to promote circadian rhythm The patient agreed on the treatment plan, understood the risk, benefit, alternative treatment, potential consequence of no treatment, and gave informed consent. Estimated days: 7 Post hospital care: primary care provider, psychiatric provider Case staffed with Dr. Goldberg Legal Status: Voluntary Patient Problems: Legal Status: Voluntary Medications and Allergies Legal Status: Involuntary Reaction to Hospitalization: Accepting Medications and Allergies Allergies Allergy/AdvReac Type Severity Reaction Status Date / Time ciprofloxacin [From Cipro] Allergy Rash Verified 10/19/21 15:11 Home Medications Medication Instructions Recorded Confirmed Last Taken Type Albuterol Mdi (or & Nicu Only) 1 puff IH ONCE 10/18/21 10/18/21 Unknown History [ProAir HFA Inhaler] Gabapentin [Neurontin] 300 mg PO BID 10/18/21 10/18/21 Unknown History HYDROcodone/APAP 5-325 [[place] 1 each PO BID PRN 10/18/21 10/18/21 Unknown History 5/325] Omeprazole 40 mg PO QAM 10/18/21 10/18/21 Unknown History Quetiapine Fumarate [SEROquel] 400 mg PO BID 10/18/21 10/18/21 Unknown History amLODIPine [Norvasc] 5 mg PO DAILY 10/18/21 10/18/21 Unknown History buPROPion HCL [Bupropion Xl] 150 mg PO Q24HR 10/18/21 10/18/21 Unknown History busPIRone [Buspar] 10 mg PO TID 10/18/21 10/18/21 Unknown History lisinopriL [Lisinopril] 20 mg PO DAILY 10/18/21 10/18/21 Unknown History Active Meds: Active Medications Acetaminophen (Acetaminophen 325 Mg Tab) 650 mg PO Q6H PRN PRN Reason: Pain, Mild (1-3) Last Admin: 10/23/21 13:57 Dose: 650 mg Hydrocodone Bitart/Acetaminophen (Hydrocodone/Acetaminophen 5-325 Mg Tab) 1 each PO BID PRN PRN Reason: Pain , Severe (7-10) Last Admin: 10/23/21 09:15 Dose: 1 each Amlodipine Besylate (Amlodipine 5 Mg Tab) 5 mg PO DAILY [facility] Last Admin: 10/23/21 09:14 Dose: 5 mg Bupropion HCl (Bupropion Xl 150 Mg Tab) 150 mg PO Q24H [facility] Last Admin: 10/23/21 13:56 Dose: 150 mg Buspirone HCl (Buspirone 10 Mg Tab) 10 mg PO TID [facility] Last Admin: 10/23/21 13:56 Dose: 10 mg Gabapentin (Gabapentin 300 Mg Cap) 300 mg PO BID [facility] Last Admin: 10/23/21 09:07 Dose: 300 mg Lisinopril (Lisinopril 20 Mg Tab) 20 mg PO DAILY [facility] Last Admin: 10/23/21 09:14 Dose: 20 mg Pantoprazole Sodium (Pantoprazole 40 Mg Tab) 40 mg PO DAILY [facility] Last Admin: 10/23/21 09:07 Dose: 40 mg Quetiapine Fumarate (Quetiapine 200 Mg Tab) 400 mg PO BID [facility] Last Admin: 10/23/21 09:07 Dose: 400 mg Results - Results Labs/Vitals: Laboratory Last Values WBC 6.0 K/mm3 (4.5-11.0) 10/19/21 17:51 RBC 3.92 M/mm3 (3.65-5.03) 10/19/21 17:51 Hgb 11.4 gm/dl (11.8-15.2) L 10/19/21 17:51 Hct 34.9 % (35.5-45.6) L 10/19/21 17:51 MCV 89 fl (84-94) 10/19/21 17:51 MCH 29 pg (28-32) 10/19/21 17:51 MCHC 33 % (32-34) 10/19/21 17:51 RDW 16.3 % (13.2-15.2) H 10/19/21 17:51 Plt Count 279 K/mm3 (140-440) 10/19/21 17:51 Lymph % (Auto) 17.0 % (13.4-35.0) 10/19/21 17:51 [place] % (Auto) 8.9 % (0.0-7.3) H 10/19/21 17:51 Eos % (Auto) 4.5 % (0.0-4.3) H 10/19/21 17:51 Baso % (Auto) 1.1 % (0.0-1.8) 10/19/21 17:51 Lymph # (Auto) 1.0 K/mm3 (1.2-5.4) L 10/19/21 17:51 [place] # (Auto) 0.5 K/mm3 (0.0-0.8) 10/19/21 17:51 Eos # (Auto) 0.3 K/mm3 (0.0-0.4) 10/19/21 17:51 Baso # (Auto) 0.1 K/mm3 (0.0-0.1) 10/19/21 17:51 Seg Neutrophils % 68.5 % (40.0-70.0) 10/19/21 17:51 Seg Neutrophils # 4.1 K/mm3 (1.8-7.7) 10/19/21 17:51 Sodium 140 mmol/L (137-145) 10/19/21 17:51 Potassium 4.1 mmol/L (3.6-5.0) 10/19/21 17:51 Chloride 106.1 mmol/L (98-107) 10/19/21 17:51 Carbon Dioxide 23 mmol/L (22-30) 10/19/21 17:51 Anion Gap 15 mmol/L 10/19/21 17:51 BUN 12 mg/dL (9-20) 10/19/21 17:51 Creatinine 0.7 mg/dL (0.8-1.3) L 10/19/21 17:51 Estimated GFR > 60 ml/min 10/19/21 17:51 BUN/Creatinine Ratio 17 % 10/19/21 17:51 Glucose 137 mg/dL (75-100) H 10/19/21 17:51 POC Glucose 131 mg/dL (70-105) H 10/19/21 19:56 Calcium 8.9 mg/dL (8.4-10.2) 10/19/21 17:51 Total Bilirubin < 0.20 mg/dL (0.1-1.2) 10/19/21 17:51 AST 27 units/L (5-40) 10/19/21 17:51 ALT 19 units/L (7-56) 10/19/21 17:51 Alkaline Phosphatase 83 units/L (35-129) 10/19/21 17:51 Total Protein 6.4 g/dL (6.3-8.2) 10/19/21 17:51 Albumin 3.6 g/dL (3.9-5) L 10/19/21 17:51 Albumin/Globulin Ratio 1.3 % 10/19/21 17:51 TSH 1.210 mlU/mL (0.270-4.200) 10/19/21 17:51 Last Vital Signs Temp 97.2 F L 10/23/21 06:37 Pulse 67 10/23/21 09:14 Resp 20 10/23/21 13:57 BP 125/78 10/23/21 09:14 Pulse Ox 98 10/23/21 09:11
[2021-10-24 08:19] VITALS: BP 99/73
[2021-10-24] MEDS: busPIRone 10 MG TAB PO SCH (08:31)
[2021-10-24] MEDS: GABAPENTIN 300 MG CAP PO SCH (09:08)
[2021-10-24] MEDS: amLODIPine 5 MG TAB PO SCH (09:08)
[2021-10-24] MEDS: QUEtiapine 200 MG TAB PO SCH (09:09)
[2021-10-24] MEDS: PANTOPRAZOLE 40 MG TAB PO SCH (09:09)
[2021-10-24] MEDS: HYDROcodone/ACETAMINOPHEN 5-325 MG TAB PO PRN (09:09)
[2021-10-24] MEDS: LISINOPRIL 20 MG TAB PO SCH (09:23)
== END 2021-10-24 12:55 | disposition home or self-care (01) | DRG 885 ==
LOC: 3A 16:05 → UNDOADMIN 16:05 → 5A 10-19 13:10
PROVIDERS: ADMIT Psychiatry & Neurology Psychiatry; ATTEND Psychiatry & Neurology Psychiatry
DX: F20.9 Schizophrenia, unspecified (principal); I10 Essential (primary) hypertension; Z88.8 Allergy status to other drugs, medicaments and biological substances; Z79.899 Other long term (current) drug therapy
CPT/HCPCS: 36415; 80048; 80053; 82962; 84443; 85025; G0378; J3490